=== PATIENT | male | born 2005 | race Caucasian/White ===

== ENCOUNTER → 2023-10-21 | Outpatient (CLI) | payer BC ==
[2023-10-21 10:32] LABS: BASOPHILS % 1.3 % (0.0-2.0); EOSINOPHILS % 2.9 % (0.0-5.0); HEMATOCRIT. 41.8 % (42.0-52.0); LYMPHOCYTES % 30.7 % (20.0-50.0); MEAN CORPUSCULAR HEMOGLOBIN 28.4 pg (28.0-32.0); MEAN CORPUSCULAR HGB CONC 33.4 g/dL (31.0-37.0); MEAN CORPUSCULAR VOLUME 85.1 fL (80.0-94.0); MEAN PLATELET VOLUME 8.3 fl (7.4-10.4); MONOCYTES % 7.5 % (2.0-8.0); NEUTROPHILS % 57.6 % (40.0-76.0); PLATELET 270 x1000/uL (130-400); RED BLOOD CELL COUNT 4.92 mill/uL (4.7-6.1); WHITE BLOOD COUNT 6.4 x1000/uL (4.5-11.0)
[2023-10-21 10:47] LABS: CHLORIDE 105 mEq/L (98-107); POTASSIUM 4.3 mEq/L (3.5-5.1); SODIUM 139 mEq/L (136-145)
[2023-10-21 10:48] LABS: CARBON DIOXIDE 28 mEq/L (21-32)
[2023-10-21 10:49] LABS: CALCIUM 8.8 mg/dL (8.7-10.4)
[2023-10-21 10:53] LABS: CREATININE 0.8 mg/dL (0.6-1.3); GLUCOSE 105 mg/dL (70-105)
[2023-10-21 10:54] LABS: UREA NITROGEN BLOOD 6 mg/dL (9-23)
[2023-10-21 10:55] LABS: ALANINE AMINOTRANSFERASE 7 IU/L (10-49); ALBUMIN 4.3 g/dL (3.2-4.8); ASPARTATE AMINOTRANSFERASE 15 IU/L (<34)
[2023-10-21 10:56] LABS: BILIRUBIN TOTAL 0.7 mg/dL (0.1-1.0); PROTEIN TOTAL 7.9 g/dL (6.0-8.3)
== END | disposition home or self-care (01) ==
LOC: LAB 09:27
PROVIDERS: ATTEND Internal Medicine
DX: E86.0 Dehydration (principal); R53.1 Weakness
CPT/HCPCS: 36415; 80053; 83036; 85025